=== PATIENT | male | born 1970 | race American Indian/Alaskan Native ===

== ENCOUNTER 2019-04-17 22:38 | Emergency (ER) | payer MEDICARE ==
[2019-04-18] MEDS ORDERED: TORADOL IV ONE (00:10)
[2019-04-18] MEDS ORDERED: NACL 0.9% 1000 ML 1,000 ML IV ONE ×2 (00:10)
[2019-04-18] MEDS ORDERED: KEPPRA 1,000 MG/NS 0.75% 100ML 1,000 MG/100 ML BAG IV ONE (00:10)
[2019-04-18] MEDS ORDERED: ZOFRAN IV ONE (00:10)
[2019-04-18] MEDS ORDERED: BENTYL IM ONE (00:10)
[2019-04-18] MEDS ORDERED: PEPCID IV ONE (00:10)
[2019-04-18] MEDS ORDERED: ATIVAN IV ONE (00:10)
[2019-04-18] MEDS ORDERED: VITAMIN B-1 100 MG, FOLVITE 1 MG, INFUVITE 10 ML in NACL 0.9% 1000 ML 1,000 ML IV ONE (00:10)
[2019-04-18 00:26] LABS: Hematocrit 35.1 % (35.5-45.6); Hemoglobin 11.6 gm/dl (11.8-15.2); Mean Corpuscular HGB Conc 33 % (32-34); Mean Corpuscular Volume 81 fl (84-94); Platelet Count 259 K/mm3 (140-440); Red Blood Count 4.33 M/mm3 (3.65-5.03); Red Cell Distribution Width 19.4 % (13.2-15.2)
[2019-04-18 00:55] LABS: Amphetamine Screen,Urine PRESUMPTIVE NEGATIVE; Cannabinoid Screen,Urine PRESUMPTIVE NEGATIVE; Cocaine Screen,Urine PRESUMPTIVE NEGATIVE; Methadone Screen,Urine PRESUMPTIVE NEGATIVE; Opiate Screen,Urine PRESUMPTIVE NEGATIVE
[2019-04-18 00:56] LABS: Bilirubin,Urine NEG (Negative); Blood,Urine NEG (Negative); Color,Urine Straw (Yellow); Protein,Urine <15 mg/dL mg/dL (Negative); RBC,Urine < 1.0 /HPF (0.0-6.0); Urobilinogen,Urine < 2.0 mg/dL (<2.0)
[2019-04-18 01:01] LABS: WBC,Urine < 1.0 /HPF (0.0-6.0)
[2019-04-18 01:10] LABS: Alanine Aminotransferase 18 units/L (7-56); Albumin 4.4 g/dL (3.9-5); BUN/Creatinine Ratio 12; Blood Urea Nitrogen 11 mg/dL (9-20); Calcium 9.3 mg/dL (8.4-10.2); Hemolysis Index 12
[2019-04-18 01:12] LABS: Benzodiazepines Screen,Urine PRESUMPTIVE POSITIVE
[2019-04-18] MEDS ORDERED: ULTRAM PO ONE (01:28)
--- NOTE | 2019-04-18 01:31 | Emergency Department Report ---
ED Abdominal Pain HPI - General Chief Complaint: Medical Clearance Stated Complaint: ALCOHOL WITHDRAWS,SEIZURE,NAUSEA,VOMITING Time Seen by Provider: 04/17/19 23:48 Source: EMS Mode of arrival: Wheelchair Limitations: No Limitations - History of Present Illness Initial Comments: Patient is a 48-year-old male sitting in secondary to 2 possible seizures today. Patient is a alcoholic and is at a detox facility. Patient states his last drink was 2 days ago that she isn't with his withdrawal symptoms worsen. Patient states that he had a seizure this morning 1 this afternoon. Patient states his chest is sore from being sternal rub. Patient does not remember having seizure. Patient has had withdrawal seizures in the past was not on any medications currently for seizures. Patient states that he has a history of pancreatitis and said 3 episodes of vomiting with nausea as well as episode of diarrhea. Patient states very tremulous does not eat and then 3 days. He can keep some water down. Patient's long oral medications for his alcohol withdrawal at the detox facility but after having a possible seizure he was sent in for evaluation. Patient denies any neck stiffness fevers chills cough cold congestion of neck stiffness. Severity scale (0 -10): 0 - Related Data Home Medications Medication Instructions Recorded Confirmed Last Taken Apixaban [Eliquis] 5 mg PO BID 04/18/19 04/18/19 04/17/19 Aspirin [Adult Aspirin] 81 mg PO DAILY 04/18/19 04/18/19 04/17/19 Digoxin [Lanoxin] 0.125 mg PO DAILY 04/18/19 04/18/19 04/17/19 Lipase/Protease/Amylase [[place] 3 each PO TIDWM 04/18/19 04/18/19 04/17/19 12,000 Units Capsule] Lisinopril [Zestril] 20 mg PO BID 04/18/19 04/18/19 04/17/19 oxyCODONE /ACETAMINOPHEN [Percocet 1 tab PO Q6HR PRN 04/18/19 04/18/19 04/17/19 5/325] Allergies Allergy/AdvReac Type Severity Reaction Status Date / Time haloperidol [From Haldol] Allergy Unknown Verified 04/18/19 02:31 ketamine Allergy Unknown Verified 04/18/19 05:12 ketorolac [From Toradol] Allergy Shortness Verified 04/18/19 02:29 of Breath metoclopramide [From Reglan] Allergy Unknown Verified 04/18/19 02:30 Penicillins Allergy Unknown Verified 04/18/19 02:31 prochlorperazine Allergy Unknown Verified 04/18/19 02:30 [From Compazine] ED Review of Systems ROS: Stated complaint: ALCOHOL WITHDRAWS,SEIZURE,NAUSEA,VOMITING Other details as noted in HPI Comment: All other systems reviewed and negative ED Past Medical Hx - Past Medical History Hx Hypertension: Yes Hx Congestive Heart Failure: Yes Hx Seizures: Yes Hx Psychiatric Treatment: Yes (ALCOHOL ABUSE) - Social History Smoking Status: Current Every Day Smoker Substance Use Type: Alcohol - Medications Home Medications: Home Medications Medication Instructions Recorded Confirmed Last Taken Type Apixaban [Eliquis] 5 mg PO BID 04/18/19 04/18/19 04/17/19 History Aspirin [Adult Aspirin] 81 mg PO DAILY 04/18/19 04/18/19 04/17/19 History Digoxin [Lanoxin] 0.125 mg PO DAILY 04/18/19 04/18/19 04/17/19 History Lipase/Protease/Amylase [Creon Dr 3 each PO TIDWM 04/18/19 04/18/19 04/17/19 History 12,000 Units Capsule] Lisinopril [Zestril] 20 mg PO BID 04/18/19 04/18/19 04/17/19 History oxyCODONE /ACETAMINOPHEN [Percocet 1 tab PO Q6HR PRN 04/18/19 04/18/19 04/17/19 History 5/325] ED Physical Exam - General Limitations: No Limitations General appearance: alert, in no apparent distress - Head Head exam: Present: atraumatic, normocephalic - Eye Eye exam: Present: normal appearance, PERRL, EOMI - ENT ENT exam: Present: mucous membranes moist - Neck Neck exam: Present: normal inspection - Respiratory Respiratory exam: Present: normal lung sounds bilaterally. Absent: respiratory distress, wheezes, rales, rhonchi - Cardiovascular Cardiovascular Exam: Present: regular rate, normal rhythm. Absent: systolic murmur, diastolic murmur, rubs, gallop - GI/Abdominal GI/Abdominal exam: Present: soft, tenderness (epigastric), normal bowel sounds. Absent: distended, guarding, rebound, rigid - Rectal Rectal exam: Present: deferred - Extremities Exam Extremities exam: Present: normal inspection. Absent: full ROM - Back Exam Back exam: Present: normal inspection - Neurological Exam Neurological exam: Present: alert, oriented X3 - Psychiatric Psychiatric exam: Present: normal affect, normal mood - Skin Skin exam: Present: warm, dry, intact, normal color. Absent: rash ED Course Vital Signs 04/17/19 04/18/19 04/18/19 23:22 00:30 00:43 Temperature 98.4 F 98.4 F Pulse Rate 138 H 95 H Respiratory 18 20 20 Rate Blood Pressure 149/102 Blood Pressure 149/105 [Left] O2 Sat by Pulse 99 97 97 Oximetry 04/18/19 04/18/19 04/18/19 01:41 02:28 02:30 Temperature Pulse Rate 70 Respiratory 20 20 20 Rate Blood Pressure Blood Pressure 156/109 [Left] O2 Sat by Pulse 100 Oximetry 04/18/19 04/18/19 04/18/19 03:14 03:28 04:14 Temperature Pulse Rate Respiratory 20 20 20 Rate Blood Pressure Blood Pressure [Left] O2 Sat by Pulse Oximetry 04/18/19 04/18/19 04/18/19 05:00 06:27 11:55 Temperature 98.5 F Pulse Rate 80 71 Respiratory 20 18 14 Rate Blood Pressure Blood Pressure 141/102 116/54 [Left] O2 Sat by Pulse 99 95 100 Oximetry 04/18/19 04/18/19 04/18/19 12:00 12:30 13:00 Temperature Pulse Rate Respiratory 19 13 16 Rate Blood Pressure 129/82 153/62 101/53 Blood Pressure [Left] O2 Sat by Pulse 99 97 Oximetry 04/18/19 04/18/19 04/18/19 13:30 14:00 14:30 Temperature Pulse Rate Respiratory 18 21 16 Rate Blood Pressure 113/50 94/50 94/44 Blood Pressure [Left] O2 Sat by Pulse 93 93 97 Oximetry 04/18/19 16:52 Temperature Pulse Rate 84 Respiratory 16 Rate Blood Pressure Blood Pressure 117/56 [Left] O2 Sat by Pulse 96 Oximetry - Reevaluation(s) Reevaluation #1: 04/18/19 18:32 Patient has been seizure-free for the last 24 hours. Patient was loaded with Keppra and is not in DTs. Patient is able to be reexamined to back to the hospital to continue with his alcohol detox. ED Medical Decision Making - Lab Data Result diagrams: 04/17/19 23:50 04/17/19 23:50 Lab Results 04/17/19 04/17/19 04/17/19 Range/Units 23:50 23:50 23:50 WBC 3.5 L (4.5-11.0) K/mm3 RBC 4.33 (3.65-5.03) M/mm3 Hgb 11.6 L (11.8-15.2) gm/dl Hct 35.1 L (35.5-45.6) % MCV 81 L (84-94) fl MCH 27 L (28-32) pg MCHC 33 (32-34) % RDW 19.4 H (13.2-15.2) % Plt Count 259 (140-440) K/mm3 Sodium 140 (137-145) mmol/L Potassium 3.8 (3.6-5.0) mmol/L Chloride 102.9 (98-107) mmol/L Carbon Dioxide 28 (22-30) mmol/L Anion Gap 13 mmol/L BUN 11 (9-20) mg/dL Creatinine 0.9 (0.8-1.5) mg/dL Estimated GFR > 60 ml/min BUN/Creatinine Ratio 12 % Glucose 98 (75-100) mg/dL Calcium 9.3 (8.4-10.2) mg/dL Total Bilirubin 0.40 (0.1-1.2) mg/dL AST 19 (5-40) units/L ALT 18 (7-56) units/L Alkaline Phosphatase 56 (35-129) units/L Total Protein 8.0 (6.3-8.2) g/dL Albumin 4.4 (3.9-5) g/dL Albumin/Globulin Ratio 1.2 % Lipase (13-60) units/L Urine Color (Yellow) Urine Turbidity (Clear) Urine pH (5.0-7.0) Ur Specific [place] (1.003-1.030) Urine Protein (Negative) mg/dL Urine Glucose (UA) (Negative) mg/dL Urine Ketones (Negative) mg/dL Urine Blood (Negative) Urine Nitrite (Negative) Urine Bilirubin (Negative) Urine Urobilinogen (<2.0) mg/dL Ur Leukocyte Esterase (Negative) Urine WBC (Auto) (0.0-6.0) /HPF Urine RBC (Auto) (0.0-6.0) /HPF Urine Opiates Screen Urine Methadone Screen Ur Barbiturates Screen Ur Phencyclidine Scrn Ur Amphetamines Screen U Benzodiazepines Scrn Urine Cocaine Screen U Marijuana (THC) Screen Drugs of Abuse Note Plasma/Serum Alcohol < 0.01 (0-0.07) % 04/18/19 04/18/19 04/18/19 Range/Units 00:10 00:11 00:11 WBC (4.5-11.0) K/mm3 RBC (3.65-5.03) M/mm3 Hgb (11.8-15.2) gm/dl Hct (35.5-45.6) % MCV (84-94) fl MCH (28-32) pg MCHC (32-34) % RDW (13.2-15.2) % Plt Count (140-440) K/mm3 Sodium (137-145) mmol/L Potassium (3.6-5.0) mmol/L Chloride (98-107) mmol/L Carbon Dioxide (22-30) mmol/L Anion Gap mmol/L BUN (9-20) mg/dL Creatinine (0.8-1.5) mg/dL Estimated GFR ml/min BUN/Creatinine Ratio % Glucose (75-100) mg/dL Calcium (8.4-10.2) mg/dL Total Bilirubin (0.1-1.2) mg/dL AST (5-40) units/L ALT (7-56) units/L Alkaline Phosphatase (35-129) units/L Total Protein (6.3-8.2) g/dL Albumin (3.9-5) g/dL Albumin/Globulin Ratio % Lipase 20 (13-60) units/L Urine Color Straw (Yellow) Urine Turbidity Clear (Clear) Urine pH 6.0 (5.0-7.0) Ur Specific [place] 1.011 (1.003-1.030) Urine Protein <15 mg/dl (Negative) mg/dL Urine Glucose (UA) Neg (Negative) mg/dL Urine Ketones Neg (Negative) mg/dL Urine Blood Neg (Negative) Urine Nitrite Neg (Negative) Urine Bilirubin Neg (Negative) Urine Urobilinogen < 2.0 (<2.0) mg/dL Ur Leukocyte Esterase Neg (Negative) Urine WBC (Auto) < 1.0 (0.0-6.0) /HPF Urine RBC (Auto) < 1.0 (0.0-6.0) /HPF Urine Opiates Screen Presumptive negative Urine Methadone Screen Presumptive negative Ur Barbiturates Screen Presumptive positive Ur Phencyclidine Scrn Presumptive negative Ur Amphetamines Screen Presumptive negative U Benzodiazepines Scrn Presumptive positive Urine Cocaine Screen Presumptive negative U Marijuana (THC) Screen Presumptive negative Drugs of Abuse Note Disclamer Plasma/Serum Alcohol (0-0.07) % - Medical Decision Making Patient was loaded with Keppra. Patient given Ativan for his tremors. Patient hydrated. Patient's lipase is within normal limits and does not appear that he has an acute pancreatitis. Patient likely with alcoholic gastritis. Patient given Pepcid and Zofran. Patient to be evaluated by mental health team to see if the patient is stable to return back to [facility]. Critical care attestation.: If time is entered above; I have spent that time in minutes in the direct care of this critically ill patient, excluding procedure time. ED Disposition Clinical Impression: Alcohol withdrawal Qualifiers: Complication of substance-induced condition: uncomplicated Qualified Code(s): F10.230 - Alcohol dependence with withdrawal, uncomplicated Disposition: DC/TX-65 PSY HOSP/PSY UNIT Is pt being admited?: No Does the pt Need Aspirin: No Condition: Stable Time of Disposition: 18:34
[2019-04-18] MEDS ORDERED: NORCO 5/325 PO ONE (02:53)
[2019-04-18] MEDS ORDERED: NORCO 5/325 ONE (02:56)
[2019-04-18 16:53] VITALS: BP 117/56
== END 2019-04-18 21:56 ==
LOC: EEVIPCON 22:38 → ED 22:38
DX: F10.230 Alcohol dependence with withdrawal, uncomplicated (principal); R10.13 Epigastric pain; I11.0 Hypertensive heart disease with heart failure; I50.9 Heart failure, unspecified; F17.200 Nicotine dependence, unspecified, uncomplicated; Z79.82 Long term (current) use of aspirin; Z79.899 Other long term (current) drug therapy; Z88.6 Allergy status to analgesic agent; Z88.0 Allergy status to penicillin; Z88.8 Allergy status to other drugs, medicaments and biological substances
CPT/HCPCS: 36415; 80053; 80307; 81001; 83690; 85027; 96365; 96366; 96368; 96375; 99284; G0480; J1953; J2060; J2405; J3411; J7030; 80320; J0500